=== PATIENT | female | born 1960 | race Caucasian/White ===

== ENCOUNTER 2022-08-26 18:55 | Outpatient (CLI) | payer BC ==
--- NOTE | 2022-08-27 01:41 | XRAY Report ---
PROCEDURE: Knee 3 View LT INDICATIONS: LEFT KNEE PAIN TECHNIQUE: 3 views of the left knee were acquired. COMPARISON: None. FINDINGS: Bones: No fractures or dislocations. No suspicious bony lesions. Soft tissues: No joint effusion. No suspicious soft tissue calcifications. IMPRESSION: 1. No fracture or dislocation. Reviewed by: Martin Rowley MD on 08/27/2022 1:47 AM PDT Approved by: Martin Rowley MD on 08/27/2022 1:47 AM PDT Station ID: [id number]
== END 2022-08-26 18:56 | disposition home or self-care (01) ==
LOC: DI.S 18:55
PROVIDERS: ATTEND Internal Medicine
DX: M25.562 Pain in left knee (principal)